=== PATIENT | male | born 1965 | race Caucasian/White ===

== ENCOUNTER 2022-09-19 16:03 | Emergency (ER) | payer SELFPAY ==
[~2022-09-19] VITALS: Ht 175 cm; Wt 122.4 kg
[2022-09-19 16:44] LABS: BASOPHILS # (AUTO) 0.1 10^3/uL (0.0-0.1); BASOPHILS % (AUTO) 1 % (0-10); EOSINOPHILS # (AUTO) 0.2 10^3/uL (0.0-0.3); EOSINOPHILS % (AUTO) 2 % (0-10); HEMATOCRIT 41 % (40-54); LYMPHOCYTES # (AUTO) 1.7 10^3/uL (1.0-4.0); LYMPHOCYTES % (AUTO) 19 % (12-44); MEAN CORPUSCULAR HEMOGLOBIN 29 pg (25-34); MEAN CORPUSCULAR HGB CONC 34 g/dL (32-36); MEAN CORPUSCULAR VOLUME 86 fL (80-99); MONOCYTES # (AUTO) 0.7 10^3/uL (0.0-1.0); MONOCYTES % (AUTO) 8 % (0-12); NEUTROPHILS # (AUTO) 6.2 10^3/uL (1.8-7.8); NEUTROPHILS % (AUTO) 70 % (42-75); PLATELET COUNT 188 10^3/uL (130-400); WHITE BLOOD COUNT 8.8 10^3/uL (4.3-11.0)
[2022-09-19] MEDS ORDERED: KETOROLAC 30 MG/ML VIAL IVP STA (17:04)
[2022-09-19 17:12] LABS: BILIRUBIN,TOTAL 0.6 MG/DL (0.1-1.0); CALCIUM 9.3 MG/DL (8.5-10.1); CREATININE SERUM 1.74 MG/DL (0.60-1.30); POTASSIUM 3.6 MMOL/L (3.6-5.0); TOTAL PROTEIN 7.7 GM/DL (6.4-8.2)
[2022-09-19] MEDS ORDERED: ONDANSETRON 4 MG/2 ML (SDV) Z0FRAN IVP ONE (17:15)
[2022-09-19] MEDS ORDERED: LACTATED RINGERS 1,000 ML IV ONE (17:15)
[2022-09-19 17:19] LABS: INR 0.9 (0.8-1.4)
--- NOTE | 2022-09-19 17:27 | Diagnostic Imaging Report ---
INDICATION: 57-year-old male with fever. COMPARISONS: None. FINDINGS: Single view of the chest shows the cardiac contour to be normal. There are slightly prominent central lung markings. Some minimal perihilar and bibasilar atelectasis is seen, but no confluent consolidations. There is no effusion or pneumothorax. Soft tissues and bony thorax are unremarkable. IMPRESSION: Some mild central reactive airway changes with a few scattered perihilar and bibasilar atelectatic infiltrates, but no confluent consolidations. There is no effusion or pneumothorax. Dictated by: Dictated on workstation # [id number]
--- NOTE | 2022-09-19 17:29 | Diagnostic Imaging Report ---
EXAMINATION: Abdominal radiographs, single view, 2 images. DATE: September 19, 2022. CLINICAL INDICATION: 57-year-old male, pelvic pain. COMPARISON: CT abdomen and pelvis September 19, 2022. COMMENTS: There is a 5 mm stone at the level of the left ureteropelvic junction as well as a nonobstructing left renal stone. These are seen on same day CT and not well seen radiographically. There are multilevel advanced degenerative changes of the spine. There are no abnormally dilated gas-filled segments of bowel. IMPRESSION: Left ureteral and renal stones seen on earlier same day CT are not well seen radiographically. Dictated by: Dictated on workstation # [id number]
--- NOTE | 2022-09-19 17:30 | Diagnostic Imaging Report ---
PROCEDURE: CT urinary tract, rule out kidney stone. TECHNIQUE: Multiple contiguous axial images were obtained through the abdomen and pelvis without the use of intravenous contrast. Auto Exposure Controls were utilized during the CT exam to meet ALARA standards for radiation dose reduction. DATE: September 19, 2022. COMPARISON: None. INDICATION: 57-year-old male, abdominal and pelvic pain. No bowel movement for 5 days. FINDINGS: There are limitations for evaluation of the abdominal organs, neoplastic processes, abscess, and limited evaluation of the vasculature relating to the lack of intravenous contrast. The visualized portions of the lungs are clear. The heart is not enlarged. There is no pericardial effusion. The liver is unremarkable in size and contour. The gallbladder is unremarkable. There is no identified intrahepatic or extrahepatic bile duct dilation. The main pancreatic duct is not abnormally dilated. Noncontrast assessment of the pancreatic parenchyma is unremarkable. The spleen is normal in size. The adrenal glands are unremarkable. There is an exophytic left renal lesion on axial image 62 which measures 7.1 cm in size. Internal attenuation of 25 Hounsfield units. This is indeterminate. There is no right hydronephrosis. There is mild left hydronephrosis. There is a nonobstructing 4 mm left renal stone on axial image 97. There is a stone in the left proximal ureter at the ureteropelvic junction measuring 5 mm in size in axial image 98. There is no additional more distally located left ureteral stone. There is no identified right ureteral stone. The urinary bladder is unremarkable. The intestinal tract is not distended. The appendix is best seen on axial image 136 and adjacent sequential images. There is no evidence of acute appendicitis. There is a very small fat-containing umbilical hernia. There is nonspecific mesenteric stranding with subcentimeter short axis mesenteric lymph nodes. There are atherosclerotic calcifications. There is no additional site of abnormally enlarged lymph node in the abdomen or pelvis. There are multilevel advanced degenerative changes of the spine. There is no identified acute bony abnormality. IMPRESSION: CT ABDOMEN AND PELVIS. 1. 5 mm stone in the left proximal ureter at the ureteropelvic junction with associated mild left hydronephrosis. 2. Additional 4 mm nonobstructing left renal stone. 3. Indeterminate exophytic left renal lesion. Recommend CT abdomen without and with intravenous contrast, renal mass protocol for further assessment. 4. Nonspecific lois mesenteric stranding. Dictated by: Dictated on workstation # [id number]
[2022-09-19 17:53] LABS: BILIRUBIN,URINE NEGATIVE (NEGATIVE); CLARITY,URINE CLEAR; COLOR,URINE YELLOW; GLUCOSE, URINE (UA) NEGATIVE (NEGATIVE); KETONES,URINE NEGATIVE (NEGATIVE); LEUKOCYTE ESTERASE ,URINE NEGATIVE (NEGATIVE); NITRITE,URINE NEGATIVE (NEGATIVE); PH,URINE 5.5 (5-9); PROTEIN,URINE NEGATIVE (NEGATIVE)
--- NOTE | 2022-09-19 17:58 | ED Abdominal Pain ---
General Chief Complaint: Abdominal/GI Problems Stated Complaint: CONSTIPATION,ABD PAIN,LOW GRADE FEVER Nursing Triage Note: PT AMBULATORY TO ER. PT REPORTS LOWER ABD PAIN/CONSTIPATION ONSET MONDAY. PT REPORTS WAS SEEN AT CLINIC ON MONDAY, DX WITH CONSTIPATION, RX MIRALAX, NO RELIEF IN S/S WITH MIRALAX. PT REPORTS URINALYSIS PERFORMED AT CLINIC ON MONDAY, WAS TOLD SMALL AMOUNT OF BLOOD PRESENT IN URINE. Source of Information: Patient History of Present Illness Date Seen by Provider: Sep 19, 2022 Time Seen by Provider: 16:22 Initial Comments PT ARRIVES VIA POV FROM HOME C/O LOWER ABDOMINAL PAIN, RADIATING TO LEFT FLANK SINCE LAST MONDAY NIGHT 09/14/22 PAIN COMES AND GOES, NOTHING WORSENS OR IMPROVES PAIN. STATES HE FEELS BLOATED, AND HAS NOT HAD A BM IN 5 DAYS. NO NAUSEA/VOMITING. THOUGHT HE FELT "FEVERISH" BUT HAS NOT TAKEN TEMP. NO URINARY SYMPTOMS ONLY FOOD INTAKE TODAY HAS BEEN A BANANA, JUST PRIOR TO ARRIVAL STATES HE HAS BEEN DRINKING "LOTS OF WATER--2-3 GLASSES OF WATER TODAY" NO PAIN NOW. STATES PAIN IS 5-6/10 AT WORST. HE HAS NOT TAKEN ANYTHING FOR PAIN DENIES HISTORY OF SIMILAR ONLY SURGERY WAS LEFT INGUINAL HERNIA REPAIR AGE 9. HE TAKES MEDICATION FOR HTN AND HYPERLIPIDEMIA. HIS DOSE OF BP MEDICATION WAS INCREASED ABOUT A MONTH AGO. PCP: DEBBIE Allergies and Home Medications Allergies Coded Allergies: No Known Drug Allergies (Unverified , 09/19/22) Patient Home Medication List Home Medication List Reviewed: Yes Hydrocodone/Acetaminophen (Hydrocodone-Acetamin 5-325 mg) 5 Mg-325 Mg Tablet, 1 EACH PO Q4-6 HOURS PRN for PAIN Prescribed by: NICO CUMMINGS on 09/19/221817 Ketorolac Tromethamine (Ketorolac Tromethamine) 10 Mg Tablet, 10 MG PO Q6H Prescribed by: NICO CUMMINGS on 09/19/221816 Nitrofurantoin Monohyd/M-Cryst (Macrobid 100 mg Capsule) 100 Mg Capsule, 1 TAB PO BID Prescribed by: NICO CUMMINGS on 09/19/221816 Ondansetron (Ondansetron Odt) 8 Mg Tab.rapdis, 8 MG PO Q4H PRN for NAUSEA/VOMITING Prescribed by: NICO CUMMINGS on 09/19/221816 Tamsulosin HCl (Flomax) 0.4 Mg Cap, 0.4 MG PO DAILY Prescribed by: NICO CUMMINGS on 09/19/221816 Review of Systems Review of Systems Constitutional: see HPI Respiratory: No Symptoms Reported Cardiovascular: No Symptoms Reported Gastrointestinal: See HPI, Abdominal Pain, Constipated; Denies Nausea, Denies Vomiting Genitourinary: No Symptoms Reported Musculoskeletal: see HPI, back pain Skin: no symptoms reported Psychiatric/Neurological: No Symptoms Reported Endocrine: No Symptoms Reported Hematologic/Lymphatic: No Symptoms Reported Past Wahsmob-Qtdoxg-Trpucx Hx Patient Social History Tobacco Use?: Yes Smoking Status: Former Smoker Smokeless Tobacco Frequency: Current Everyday User Use of E-Cig and/or Vaping dev: No Substance use?: No Alcohol Use?: No Pt feels they are or have been: No Immunizations Up To Date First/Initial COVID19 Vaccinat: RECEIVED, UNK WHEN Second COVID19 Vaccination [place]: RECEIVED, UNK WHEN COVID19 Vaccine Housing Installer: SHAYY Past Medical History Surgeries: Yes (LEFT INGUINAL HERNIA REPAIR AGE 9) Abdominal Respiratory: No Cardiac: Yes High Cholesterol, Hypertension Neurological: No Genitourinary: No Gastrointestinal: No Musculoskeletal: No Endocrine: Yes (BOESITY) Cancer: No Psychosocial: No Integumentary: No Blood Disorders: No Physical Exam Vital Signs Vital Signs - First Documented 09/19/22 16:09 Temp 37.0 Pulse 114 Resp 18 B/P (MAP) 201/104 (136) Pulse Ox 95 O2 Delivery Room Air Capillary Refill : Height/Weight/BMI Height: '" Weight: lbs. oz. kg; 39.00 BMI Method: General Appearance: WD/WN, no apparent distress, obese, other (SITTING QUIETLY, DOES NOT APPEAR TO BE IN ANY DISCOMFORT OR DISTRESS) HEENT: No scleral icterus (R), No scleral icterus (L), No pale conjunctivae (R), No pale conjunctivae (L) Respiratory: normal breath sounds, no respiratory distress, no accessory muscle use Cardiovascular: regular rate, rhythm, no murmur Gastrointestinal: normal bowel sounds, soft; No guarding, No rebound; tenderness (MILD SUPRAPUBIC, LLQ AND LEFT FLANK TENDERNESS); No hernia Extremities: normal inspection, normal capillary refill Back: no vertebral tenderness, CVA tenderness (L) 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, no motor/sensory deficits, alert, normal mood/affect, oriented x 3 Skin: normal color, warm/dry; No rash Focused Exam Lactate Level 09/19/22 16:42: Lactic Acid Level 0.59 Lactic Acid Level Laboratory Tests Test 09/19/22 16:42 Lactic Acid Level 0.59 MMOL/L (0.50-2.00) Progress/Results/Core Measures Results/Orders Lab Results Laboratory Tests Test 09/19/22 16:35 09/19/22 16:42 09/19/22 17:47 Range/Units White Blood Count 8.8 4.3-11.0 10^3/uL Red Blood Count 4.78 4.30-5.52 10^6/uL Hemoglobin 14.0 13.3-17.7 g/dL Hematocrit 41 40-54 % Mean Corpuscular Volume 86 80-99 fL Mean Corpuscular Hemoglobin 29 25-34 pg Mean Corpuscular Hemoglobin Concent 34 32-36 g/dL Red Cell Distribution Width 13.0 10.0-14.5 % Platelet Count 188 130-400 10^3/uL Mean Platelet Volume 10.0 9.0-12.2 fL Immature Granulocyte % (Auto) 0 % Neutrophils (%) (Auto) 70 42-75 % Lymphocytes (%) (Auto) 19 12-44 % Monocytes (%) (Auto) 8 0-12 % Eosinophils (%) (Auto) 2 0-10 % Basophils (%) (Auto) 1 0-10 % Neutrophils # (Auto) 6.2 1.8-7.8 10^3/uL Lymphocytes # (Auto) 1.7 1.0-4.0 10^3/uL Monocytes # (Auto) 0.7 0.0-1.0 10^3/uL Eosinophils # (Auto) 0.2 0.0-0.3 10^3/uL Basophils # (Auto) 0.1 0.0-0.1 10^3/uL Immature Granulocyte # (Auto) 0.0 0.0-0.1 10^3/uL Prothrombin Time 13.0 12.2-14.7 SEC INR Comment 0.9 0.8-1.4 Activated Partial Thromboplast Time 21 L 24-35 SEC Sodium Level 137 135-145 MMOL/L Potassium Level 3.6 3.6-5.0 MMOL/L Chloride Level 103 98-107 MMOL/L Carbon Dioxide Level 26 21-32 MMOL/L Anion Gap 8 5-14 MMOL/L Blood Urea Nitrogen 29 H 7-18 MG/DL Creatinine 1.74 H 0.60-1.30 MG/DL Estimat Glomerular Filtration Rate 45 BUN/Creatinine Ratio 17 Glucose Level 104 70-105 MG/DL Calcium Level 9.3 8.5-10.1 MG/DL Corrected Calcium 9.3 8.5-10.1 MG/DL Total Bilirubin 0.6 0.1-1.0 MG/DL Aspartate Amino Transf (AST/SGOT) 13 5-34 U/L Alanine Aminotransferase (ALT/SGPT) 19 0-55 U/L Alkaline Phosphatase 78 40-136 U/L Total Protein 7.7 6.4-8.2 GM/DL Albumin 4.0 3.2-4.5 GM/DL Amylase Level 36 25-125 U/L Lipase 13 8-78 U/L Procalcitonin 0.12 H <0.10 NG/ML Lactic Acid Level 0.59 0.50-2.00 MMOL/L Urine Color YELLOW Urine Clarity CLEAR Urine pH 5.5 5-9 Urine Specific [place] 1.010 L 1.016-1.022 Urine Protein NEGATIVE NEGATIVE Urine Glucose (UA) NEGATIVE NEGATIVE Urine Ketones NEGATIVE NEGATIVE Urine Nitrite NEGATIVE NEGATIVE Urine Bilirubin NEGATIVE NEGATIVE Urine Urobilinogen 0.2 < = 1.0 MG/DL Urine Leukocyte Esterase NEGATIVE NEGATIVE Urine RBC (Auto) 2+ H NEGATIVE Urine RBC RARE /HPF Urine WBC 0-2 /HPF Urine Crystals NONE /LPF Urine Bacteria TRACE /HPF Urine Casts NONE /LPF Urine Mucus SMALL H /LPF Urine Culture Indicated NO My Orders Orders - NICO CUMMINGS DO Ed Iv/Invasive Line Start (09/19/22 16:22) Amylase (09/19/22 16:22) Cbc With Automated Diff (09/19/22 16:22) Comprehensive Metabolic Panel (09/19/22 16:22) Lipase (09/19/22 16:22) Ua Culture If Indicated (09/19/22 16:22) Blood Culture (09/19/22 16:22) Urine Culture (09/19/22 16:22) Protime With Inr (09/19/22 16:22) Partial Thromboplastin Time (09/19/22 16:22) Chest 1 View, Ap/Pa Only (09/19/22 16:22) Ed Iv/Invasive Line Start (09/19/22 16:22) Vital Signs Adult Sepsis Patie Q15M (09/19/22 16:22) O2 (09/19/22 16:22) Remove Rings In Anticipation O (09/19/22 16:22) Lactic Acid Analyzer (09/19/22 16:22) Procalcitonin (Pct) (09/19/22 16:22) Ed Iv/Invasive Line Start (09/19/22 16:22) Ct Abd/Pelvis Wo(Kidney Stone) (09/19/22 17:04) Abdomen/Kub 1view (09/19/22 17:04) Ed Iv/Invasive Line Start (09/19/22 17:04) Ed Iv/Invasive Line Start (09/19/22 17:04) Lactated Ringers (Lr 1000 Ml Iv Solution (09/19/22 17:15) Ondansetron Injection (Zofran Injectio (09/19/22 17:15) Ketorolac Injection (Toradol Injection) (09/19/22 17:04) Medications Given in ED Vital Signs/I&O 09/19/22 09/19/22 16:09 18:28 Temp 37.0 Pulse 114 Resp 18 B/P (MAP) 201/104 (136) 185/99 Pulse Ox 95 O2 Delivery Room Air 09/20/22 00:00 Intake Total 450 ml Balance 450 ml 2 Blood Pressure Mean: 136 Progress Progress Note : Progress Note GIVEN IV FLUIDS, AND TORADOL PT IS SYMPTOM FREE AT DISMISSAL REVIEWED TEST RESULTS, ANTICIPATED COURSE, SYMPTOMATIC TREATMENT, MEDICATIONS, NEED FOR FOLLOW UP WITH UROLOGIST OF CHOICE, AND RETURN PRECAUTIONS STRAINER SENT HOME WITH PT DISCUSSED INCIDENTAL FINDING ON CT SCAN OF LEFT RENAL MASS, AND NEED FOR FURTHER EVALUATION OF THAT BY UROLOGIST WELL. ALSO DISCUSSED ELEVATED BP, AND NEED FOR FOLLOW UP WITH PCP FOR FURTHER EVALUATION OF THIS THERE IS CURRENTLY NO UROLOGIST HERE, PT WAS ADVISED THERE WERE UROLOGY SERVICES IN [place], AND AT [facility] AND [facility] IN [place], AND ADVISED HIM TO FOLLOW UP WITH UROLOGIST OF CHOICE SOON POSSIBLE. Diagnostic Imaging Comments PER RADIOLOGIST REPORTS AT 1757 CXR--FINDINGS: Single view of the chest shows the cardiac contour to be normal. There are slightly prominent central lung markings. Some minimal perihilar and bibasilar atelectasis is seen, but no confluent consolidations. There is no effusion or pneumothorax. Soft tissues and bony thorax are unremarkable. IMPRESSION: Some mild central reactive airway changes with a few scattered perihilar and bibasilar atelectatic infiltrates, but no confluent consolidations. There is no effusion or pneumothorax. ABD XRAY--COMMENTS: There is a 5 mm stone at the level of the left ureteropelvic junction as well as a nonobstructing left renal stone. These are seen on same day CT and not well seen radiographically. There are multilevel advanced degenerative changes of the spine. There are no abnormally dilated gas-filled segments of bowel. IMPRESSION: Left ureteral and renal stones seen on earlier same day CT are not well seen radiographically. CT ABDOMEN/PELVIS--FINDINGS: There are limitations for evaluation of the abdominal organs, neoplastic processes, abscess, and limited evaluation of the vasculature relating to the lack of intravenous contrast. The visualized portions of the lungs are clear. The heart is not enlarged. There is no pericardial effusion. The liver is unremarkable in size and contour. The gallbladder is unremarkable. There is no identified intrahepatic or extrahepatic bile duct dilation. The main pancreatic duct is not abnormally dilated. Noncontrast assessment of the pancreatic parenchyma is unremarkable. The spleen is normal in size. The adrenal glands are unremarkable. There is an exophytic left renal lesion on axial image 62 which measures 7.1 cm in size. Internal attenuation of 25 Hounsfield units. This is indeterminate. There is no right hydronephrosis. There is mild left hydronephrosis. There is a nonobstructing 4 mm left renal stone on axial image 97. There is a stone in the left proximal ureter at the ureteropelvic junction measuring 5 mm in size in axial image 98. There is no additional more distally located left ureteral stone. There is no identified right ureteral stone. The urinary bladder is unremarkable. The intestinal tract is not distended. The appendix is best seen on axial image 136 and adjacent sequential images. There is no evidence of acute appendicitis. There is a very small fat-containing umbilical hernia. There is nonspecific mesenteric stranding with subcentimeter short axis mesenteric lymph nodes. There are atherosclerotic calcifications. There is no additional site of abnormally enlarged lymph node in the abdomen or pelvis. There are multilevel advanced degenerative changes of the spine. There is no identified acute bony abnormality. IMPRESSION: CT ABDOMEN AND PELVIS. 1. 5 mm stone in the left proximal ureter at the ureteropelvic junction with associated mild left hydronephrosis. 2. Additional 4 mm nonobstructing left renal stone. 3. Indeterminate exophytic left renal lesion. Recommend CT abdomen without and with intravenous contrast, renal mass protocol for further assessment. 4. Nonspecific lois mesenteric stranding. Reviewed: Reviewed by Me Departure Impression Primary Impression: Left ureteral stone Additional Impressions: Abnormal finding on CT scan LEFT RENAL MASS NOTED ON CT SCAN HTN (hypertension) Renal insufficiency Disposition: HOME, SELF-CARE Condition: Improved Departure-Patient Inst. Decision time for Depature: 18:10 Referrals: [facility] (PCP/Family) Primary Care Physician Patient Instructions: Kidney Stone, Adult ED, CT Scan, General, How to Strain Your Urine, Incidental Findings, High Blood Pressure ED Add. Discharge Instructions: HOME, REST LOTS OF CLEAR LIQUIDS STRAIN ALL URINE--RETURN ANY STONES TO UROLOGIST OFFICE. FOLLOW UP WITH UROLOGIST OF CHOICE, YOU MAY CALL [facility], OR [facility] OR [facility] IN [place], OR [facility] FOR UROLOGIST TO FOLLOW UP WITH RETURN TO ER IF YOUR SYMPTOMS WORSEN FOLLOW UP WITH [facility] THIS WEEK FOR FURTHER EVALUATION OF HIGH BLOOD PRESSURE All discharge instructions reviewed with patient and/or family. Voiced understanding. Scripts Hydrocodone/Acetaminophen (Hydrocodone-Acetamin 5-325 mg) 5 Mg-325 Mg Tablet 1 EACH PO Q4-6 HOURS PRN for PAIN, #20 TAB Prov: NICO CUMMINGS DO 09/19/22 Ketorolac Tromethamine (Ketorolac Tromethamine) 10 Mg Tablet 10 MG PO Q6H for Pain, #15 TAB Prov: NICO CUMMINGS DO 09/19/22 Ondansetron (Ondansetron Odt) 8 Mg Tab.rapdis 8 MG PO Q4H PRN for NAUSEA/VOMITING, #10 TAB Prov: NICO CUMMINGS K DO 09/19/22 Tamsulosin HCl (Flomax) 0.4 Mg Cap 0.4 MG PO DAILY, #10 CAP Prov: NICO CUMMINGS DO 09/19/22 Nitrofurantoin Monohyd/M-Cryst (Macrobid 100 mg Capsule) 100 Mg Capsule 1 TAB PO BID, #20 CAP Prov: NICO CUMMINGS DO 09/19/22 Work/School Note: Work Release Form Date Seen in the Emergency Department: Sep 19, 2022 Return to Work: Sep 20, 2022 NICO CUMMINGS DO Sep 19, 2022 17:58
[2022-09-19 18:03] LABS: RBC,URINE RARE /HPF; WBC,URINE 0-2 /HPF
[2022-09-19 18:04] LABS: BACTERIA,URINE TRACE /HPF
[2022-09-19] MEDS ORDERED: KETO10TA PO (18:17)
[2022-09-19] MEDS ORDERED: ONDA8TAB13 PO (18:17)
[2022-09-19] MEDS ORDERED: TMSL.4C PO (18:17)
[2022-09-19] MEDS ORDERED: NITR-65 PO (18:17)
[2022-09-19] MEDS ORDERED: ACHD5005 PO (18:17)
[2022-09-19 18:28] VITALS: BP 185/99
== END 2022-09-19 18:29 | disposition home or self-care (01) ==
LOC: EDUNIT# 16:03 → ER 16:06
DX: N13.2 Hydronephrosis with renal and ureteral calculous obstruction (principal); N28.9 Disorder of kidney and ureter, unspecified; I10 Essential (primary) hypertension; R93.422 Abnormal radiologic findings on diagnostic imaging of left kidney; E78.5 Hyperlipidemia, unspecified; E66.9 Obesity, unspecified; Z87.891 Personal history of nicotine dependence; Z68.39 Body mass index [BMI] 39.0-39.9, adult; Z98.890 Other specified postprocedural states
CPT/HCPCS: 36415; 71045; 74018; 74176; 80053; 81000; 82150; 83605; 83690; 84145; 85025; 85610; 85730; 87040; 87088